=== PATIENT | female | born 1965 | race Caucasian/White ===

== ENCOUNTER 2021-08-11 19:13 | Inpatient (IN) | payer MEDICARE, MEDICAID, SELFPAY ==
[2021-08-11] VITALS (27 sets, daily range): BP systolic 119–156; BP diastolic 75–115; PULSE 68–94; RESP 17–32; TEMP 36.2; O2SAT 89–100; BMI 37.8
--- NOTE | ~2021-08-11 | XR_ITS ---
EXAMINATION: XR chest 1V portable DATE: 08/11/2021 20:10 INDICATION: Dyspnea. Chest tightness. TECHNIQUE: A single frontal view of the chest was obtained. COMPARISON: Chest 2 views 08/08/2016 FINDINGS: The chest demonstrates clear lungs without pneumonia, pleural effusion, or pneumothorax. Th e heart size is normal. There is a left chest wall pacer with leads in the right atrium and right bacilio tricle. There is an additional lead overlying right atrium. IMPRESSION: 1. No acute cardiopulmonary disease. Reviewed, dictated and finalized at location A.
--- NOTE | ~2021-08-11 | US_ITS ---
EXAMINATION: US venous doppler [facility] DATE: 08/13/2021 12:21 INDICATION: Bilateral lower limb swelling TECHNIQUE: Fuentes scale images without and with compression and Doppler images of the bilateral lower e xtremity veins were obtained. COMPARISON: None FINDINGS: The right common femoral vein, profunda femoral vein, femoral vein, popliteal vein, peroneal trunk, p osterior tibial veins, and greater saphenous vein are patent. The left common femoral vein, profunda femoral vein, femoral vein, popliteal vein, peroneal trunk, po sterior tibial veins, and greater saphenous vein are patent. IMPRESSION: 1. Patent bilateral lower extremity veins. No evidence of deep venous thrombosis. Reviewed, dictated and finalized at location A. IMPRESSION: 1. Patent bilateral lower extremity veins. No evidence of deep venous thrombosi s.
--- NOTE | ~2021-08-11 | XR_ITS ---
EXAMINATION: XR chest 1V portable INDICATION: Shortness of breath TECHNIQUE: Portable AP chest at 0823 hours COMPARISON: 08/11/2021 FINDINGS: There is mild atelectasis left lung base. The lungs are free of focal airspace opacities. T here is no pleural effusion or pneumothorax. A triple lead cardiac pacemaker of the left chest wall e nds with leads in expected locations. IMPRESSION: 1. Mild atelectasis. Reviewed, dictated and finalized at location A. IMPRESSION: 1. Mild atelectasis.
--- NOTE | ~2021-08-11 | CT_ITS ---
EXAMINATION: CTA chest PE protocol DATE: 08/13/2021 13:29 INDICATION: Shortness of breath TECHNIQUE: Computed tomography angiography (CTA) of the chest was performed with 100 mL Omnipaque-350 intravenous contrast timed to evaluate the pulmonary arteries. Coronal maximum intensity projection 3D-reconstructions were created by the technologist. The dose-length product (DLP) was 1010.09 mGy-cm . Automated exposure control and iterative reconstruction technique were employed. COMPARISON: 08/11/2021 FINDINGS: The pulmonary arteries are well-opacified. No pulmonary embolism is identified. Respiratory motion artifact slightly limits sensitivity. The previously described bronchitis has improved. There is also improvement in right upper lobe pneumonitis. There is no pleural effusion or pneumothorax. N o pathologically enlarged thoracic lymph nodes are identified. The heart size is normal. The gallblad mahnaz is surgically absent. There is mild thoracic spondylosis. There is a dual-lead pacemaker of the l eft chest wall with leads in the right atrium and right ventricle. IMPRESSION: 1. No pulmonary embolus. 2. Improving bronchitis of the upper lobes. Reviewed, dictated and finalized at location A.
--- NOTE | ~2021-08-11 | CT_ITS ---
EXAMINATION: CTA chest PE protocol DATE: 08/11/2021 20:55 INDICATION: Chest tightness. Shortness of breath. TECHNIQUE: Computed tomography angiography (CTA) of the chest was performed with 100 mL Omnipaque-350 intravenous contrast timed to evaluate the pulmonary arteries. Coronal maximum intensity projection 3D-reconstructions were created by the technologist. Automated exposure control and iterative reconst ruction technique were employed. The dose-length product was 477.90 mGy-cm. COMPARISON: None. FINDINGS: There is bronchial wall thickening in all lobes. There is mild atelectasis in right middle lobe and lingula. There are mild groundglass opacities in right upper lobe. No pleural effusion. The heart size is normal. No pericardial effusion. There is a left chest pacer with leads in right atrium and right ventricle. There is an additional lead in right atrium. Calcified mediastinal lymph nodes are consistent with old granulomatous disease. There is no pulmonary embolus. There are changes of ch olecystectomy. There is mild thoracic spondylosis. IMPRESSION: 1. No pulmonary embolus. 2. Bilateral bronchitis with mild right upper lobe pneumonitis. Reviewed, dictated and finalized at location A.
--- NOTE | 2021-08-11 19:15 | ECG_ITS ---
Measurements Intervals [place] Rate: 75 P: 72 WI: 161 QRS: 54 QRSD: 81 T: 61 QT: 369 QTc: 412 Interpretive Statements SINUS RHYTHM BORDERLINE ST-T WAVE ABNORMALITY- HIGH LATERAL LEADS BASELINE ARTIFACT- I, II, AVR, V4-V6 BORDERLINE ECG Electronically Signed On 08-11-2021 19:50:02 CDT by Ashok Rodriguez D.O.
--- NOTE | 2021-08-11 19:35 | ED.GENADULT ---
HPI - General Adult General Chief complaint: Shortness of Breath/Dyspnea Stated complaint: Shortness of breath, chest pain Time Seen by Provider: 08/11/21 19:29 History of Present Illness HPI narrative: Patient is a 56-year-old female who presents the emergency department with chief complaint of chest pain and shortness of breath. Patient states she has been having discomfort in her chest described as a tightness feeling for the last several hours patient states just prior to arrival in the emergency department she started getting more more short of breath. Patient states she is missing her appointment she does not have a nebulizer and inhaler at home and has been diagnosed with COPD. Patient also reports she has history of cardiac disease has a pacemaker for sick sinus syndrome and also has had an episode of congestive heart failure before in the past. Patient states that she currently does not have a primary care physician. Patient denies fever denies chills. Patient reports symptoms are not improved by anything and are worsened with movement and exertion. Related Data Allergies Allergy/AdvReac Type Severity Reaction Status Date / Time No Known Allergies Allergy Unverified 12/31/17 07:40 Review of Systems Review of Systems: A 10 system review of systems was completed on the patient and is negative except for what is stated in the HPI. Nursing and ancillary documentation was reviewed. PMFSH Comments Past medical history significant for COPD CHF coronary artery disease sick sinus syndrome. Social history patient denies illicit drug use reports that she smokes occasional cigarettes Exam Narrative: GENERAL: Well-appearing, well-nourished, and in no acute distress. HEAD: Normocephalic, atraumatic. EYES: PERRLA and EOMI. ENT: Nares clear, no rhinorrhea or epistaxis. Mucous membranes moist. NECK: Supple. CHEST: Mild respiratory distress with respiratory rate of 30. Scattered wheezes present bilaterally and increased respiratory rate HEART: Regular rate and rhythm. No murmur heard. Normal peripheral pulses. ABDOMEN: Soft, nontender, nondistended, normal active bowel sounds. EXTREMITIES: Normal range of motion. No edema. SKIN: Warm, dry, no rash. NEURO: No focal deficits. Alert and oriented x3. PSYCH: Normal mood and affect. Course Vital Signs Vital signs: Vital Signs Temperature 36.2 C L 08/11/21 19:23 Pulse Rate 94 08/11/21 19:23 Respiratory Rate 30 H 08/11/21 19:23 Blood Pressure 156/82 H 08/11/21 19:23 Pulse Oximetry 94 08/11/21 19:23 Temperature 36.2 C L 08/11/21 19:23 Pulse Rate 74 08/11/21 21:31 Respiratory Rate 27 H 08/11/21 20:02 Blood Pressure 156/82 H 08/11/21 19:23 Pulse Oximetry 96 08/11/21 19:48 Medical Decision Making Vital Signs Vital Signs: Vital Signs Temperature 36.2 C L 08/11/21 19:23 Pulse Rate 94 08/11/21 19:23 Respiratory Rate 30 H 08/11/21 19:23 Blood Pressure 156/82 H 08/11/21 19:23 Pulse Oximetry 94 08/11/21 19:23 Temperature 36.2 C L 08/11/21 19:23 Pulse Rate 74 08/11/21 21:31 Respiratory Rate 27 H 08/11/21 20:02 Blood Pressure 156/82 H 08/11/21 19:23 Pulse Oximetry 96 08/11/21 19:48 Lab Data Result diagrams: 08/11/21 19:39 08/11/21 19:39 Labs: Lab Results 08/11/21 08/11/21 08/11/21 Range/Units 19:39 19:39 19:39 WBC 7.2 (4.5-10.0) K/mm3 RBC 4.81 (4.2-5.4) M/mm3 Hgb 14.8 (12.0-15.0) g/dL Hct 45.5 (37.0-47.0) % MCV 94.6 (80-100) fl MCH 30.8 (26-34) pg MCHC 32.5 (32-36) g/dl RDW 13.6 (11.5-14.5) % Plt Count 295 (150-375) k/mm3 MPV 10.4 (7.4-10.4) fl Immature Gran % (Auto) 0.3 (0-0.5) % Neut % (Auto) 64.2 (45.5-73.1) % Lymph % (Auto) 28.7 (18.3-44.2) % Posey % (Auto) 4.6 (2.6-8.5) % Eos % (Auto) 1.5 (0-4.4) % Baso % (Auto) 0.7 (0.2-1.2) % Lymph # (Auto) 2.07 (0.9-3.2) K/mm3 Posey # (Auto) 0.3
[2021-08-11] MEDS: IPRATROPIUM BR 0.02% INH SOLN 0.5 MG/2.5 ML VIAL INHALATION (19:45)
[2021-08-11] MEDS: ALBUTEROL SULFATE NEB 2.5 MG/0.5 ML INH 5 MG INHALATION (19:45)
[2021-08-11 19:47] LABS: Basophils Absolute Auto 0.1 K/mm3 (0.0-0.1); Basophils Percent Auto 0.7 % (0.2-1.2); Eosinophils Absolute Auto 0.1 K/mm3 (0-0.3); Eosinophils Percent Auto 1.5 % (0-4.4); Hematocrit 45.5 % (37.0-47.0); Hemoglobin 14.8 g/dL (12.0-15.0); Immature Granulocyte Absolute 0.02 K/mm3 (0.00-0.031); Immature Granulocyte Percent A 0.3 % (0-0.5); Lymphocytes Absolute Auto 2.07 K/mm3 (0.9-3.2); Lymphocytes Percent Auto 28.7 % (18.3-44.2); Mean Corpuscular HGB Conc 32.5 g/dl (32-36); Mean Corpuscular Hemoglobin 30.8 pg (26-34); Mean Corpuscular Volume 94.6 fl (80-100); Mean Platelet Volume 10.4 fl (7.4-10.4); Monocytes Absolute Auto 0.3 K/mm3 (0.1-0.6); Monocytes Percent Auto 4.6 % (2.6-8.5); Neutrophils Absolute Auto 4.6 K/mm3 (1.3-6.7); Neutrophils Percent Auto 64.2 % (45.5-73.1); Platelet Count Result 295 k/mm3 (150-375); Red Blood Count 4.81 M/mm3 (4.2-5.4); Red Cell Distribution Width 13.6 % (11.5-14.5); White Blood Count 7.2 K/mm3 (4.5-10.0)
[2021-08-11 19:54] LABS: Base Excess ABG -0.6 mEq/l (+/-2.0); Device NASAL CANNULA; Fractional Inspired Oxygen 28 %; HCO3 ABG 23.7 mEq/l (22.0-26.0); Oxygen Content ABG 19.2 %vol (16.0-22.0); Oxygen Saturation ABG 93.2 % (95.0-100.0); Oxyhemoglobin 91.7 % THb (90.0-100.0); PCO2 ABG 38.3 mmHg (35.0-45.0); PO2 ABG 65.4 mmHg (80.0-100.0); PO2 FiO2 Ratio Arterial Blood 2.34 %; Site Drawn RIGHT BRACHIAL; Total Hemoglobin 14.9 g/dL (12.0-18.0)
[2021-08-11 19:56] LABS: Lactic Acid Reflex 1.4 mmol/L (0.7-2.0)
[2021-08-11 19:57] LABS: Alanine Aminotransferase 24 U/L (4-35); Albumin Level 4.3 g/dL (3.5-5.1); Alkaline Phosphatase 135 U/L (38-126); Anion Gap 9 mmol/L (8-16); Aspartate Amino Transferase 36 U/L (14-36); Bilirubin,Total 0.3 mg/dL (0.2-1.3); Blood Urea Nitrogen 15 mg/dL (7-17); Carbon Dioxide 27 mmol/L (22-30); Chloride 104 mmol/L (98-107); Estimated CRCL calculation 52 ml/min; Estimated Glomerular Filt Rate > 60; Glucose 115 mg/dL (65-110); Potassium 3.4 mmol/L (3.4-5.0); Sodium 140 mmol/L (137-145)
[2021-08-11 19:58] LABS: Lipase 60 U/L (23-300); Magnesium 1.8 mg/dL (1.6-2.3)
[2021-08-11 20:01] LABS: INR 1.1; Prothrombin Time 13.7 Seconds (11.1-14.7)
[2021-08-11 20:02] LABS: Partial Thromboplastin Time 30.4 SECONDS (22.3-36.8)
[2021-08-11] MEDS: ASPIRIN 81 MG CHEWABLE TABLET 324 MG PO (20:03)
[2021-08-11] MEDS: methylPREDNISolone SOD SUCC 125 MG VIAL IV PUSH (20:03)
[2021-08-11 20:06] LABS: NT Pro B Type Natriuretic Pept 73 pg/mL (5-100)
[2021-08-11 20:09] LABS: Troponin I < 0.012 ng/mL (0.000-0.034)
[2021-08-11 20:24] LABS: SARS-CoV-2 RNA PCR Negative
--- NOTE | 2021-08-11 21:14 | PM.IMHP ---
H&P: HPI History of Present Illness Date/Time: 08/11/21 21:14 Chief Complaint: Shortness of breath. Narrative: This is a 56-year-old female with past medical history significant for COPD/emphysema, tobacco dependence. Patient presents to the emergency room due to worsening shortness of breath, for the last day or so patient denies any fevers, rigors, chills, has cough, denies any changes in sputum quality she has a productive cough with scanty sputum production. Patient has not been able to sleep due to shortness of breath. Patient is a current everyday smoker. Preliminary workup was significant for CT angiogram of the chest was negative for acute pulmonary embolism. A chest x-ray showed no acute cardiopulmonary disease. Patient requires supplemental oxygen 2 L by nasal cannula blood gases showed a pH of 7.4, pCO2 38 PO2 65. Decision has been made to admit the patient for further evaluation management and treatment. Review of Systems Review of Systems: Shortness of breath, wheezing. Constitutional: Constitutional: Denies chills, Reports fatigue, Denies fever(s), Denies lethargy, Denies malaise, Denies night sweats and Denies weakness Eyes: Eyes: Denies change in vision ENT: Denies dysphagia, Denies vertigo, Denies dizziness, Denies nasal congestion, Denies nasal discharge, Denies nasal obstruction and Denies odynophagia Cardiovascular: Cardiovascular: Denies chest pain, Denies pedal edema, Denies edema, Denies leg edema, Denies radiating jaw, neck or arm pain and Denies palpitations Respiratory: Respiratory: Denies change in phlegm color, Reports cough, Denies excessive phlegm production and Reports dyspnea Gastrointestinal: Gastrointestinal: Denies abdominal pain, Denies dyspepsia, Denies heartburn, Denies diarrhea, Denies nausea and Denies vomiting Genitourinary: Genitourinary: Denies dysuria Musculoskeletal: Musculoskeletal: Denies arthralgias and Denies joint swelling Integumentary/Breasts: Skin/Breast: Denies rash Neurologic: Denies focal weakness and Denies Sensory deficit (Neuro) Psychiatric: Psychiatric: Reports no additional psychiatric complaints and Reports as per HPI Endocrine: Endocrine: Denies cold intolerance, Denies heat intolerance, Denies polyphagia, Denies polydipsia and Denies palpitations Hematologic/Lymphatic: Hematologic/Lymphatic: Reports no additional hematologic/lymphatic complaints and Reports as per HPI Allergic/Immunologic: Allergic/Immunologic: Reports no additional allergic/immunologic complaints and Reports as per HPI [facility] Family History Family History (Updated 08/12/21 @ 01:20 by Negin Valenzuela RN) Father Heart disease Sibling Stomach cancer COPD (chronic obstructive pulmonary disease) Sibling Diabetes mellitus Social History Social History Years smoked: 35 Smoking status: Current every day smoker Tobacco type: cigarettes Additional smoking assessment comments: pt trying to quit Alcohol intake: never Substance use type: marijuana Other substance usage details: 08/07/21 Spiritual care concerns: No Meds Home Medications and Allergies Home Medications Medication Instructions Recorded Confirmed Type albuterol sulfate 90 mcg INHALATION Q4-6H PRN 08/12/21 08/12/21 History alprazolam 2 mg PO TID PRN 08/12/21 08/12/21 History budesonide-formoterol [Symbicort] 2 puff INHALATION DAILY 08/12/21 08/12/21 History clopidogrel 75 mg PO DAILY 08/12/21 08/12/21 History gabapentin 1,200 mg PO TID 08/12/21 08/12/21 History isosorbide mononitrate 60 mg PO DAILY 08/12/21 08/12/21 History lisinopril 10 mg PO DAILY 08/12/21 08/12/21 History nitroglycerin 0.4 mg SUBLINGUAL Q5MIN PRN 08/12/21 08/12/21 History paroxetine HCl 40 mg PO DAILY 08/12/21 08/12/21 History Allergies Allergy/AdvReac Type Severity Reaction Status Date / Time No Known Allergies Allergy Verified 08/12/21 00:02 Vital Signs Vital Signs
[2021-08-11 21:35] LABS: Appearance Urine Clear (Clear); Bilirubin Urine Negative (Negative); Blood Urine Negative (Negative); Color Urine Yellow (Yellow); Glucose Urine UA Negative (Negative); Ketones Urine Negative (Negative); Leukocyte Esterase Ur Negative LEU/UL (Negative); Nitrate Urine Negative (Negative); Protein Urine Negative (Negative); Urobilinogen Urine 0.2 mg/dL (<2.0); pH Urine 5.5 (5.0-9.0)
[2021-08-11 21:39] LABS: Add Urine Microscopic? YES
[2021-08-11] MEDS: MORPHINE SULFATE (*CRX) 4 MG/ML INJ IV PUSH (21:40)
[2021-08-11 21:41] LABS: Mucus Urine Few /lpf; RBC Urine 0-2 /hpf (0-2); Squamous Epithelial Cell Urine Rare /hpf (Few); WBC Urine 0-3 /hpf
[2021-08-11 22:40] LABS: Troponin I < 0.012 ng/mL (0.000-0.034)
--- NOTE | 2021-08-11 23:30 | ADMGEN ---
This patient, Annalisa Little, was admitted to Medical Room 253-01. Patient/family oriented to hospital policies and general routines including ID bracelet, bed and alarms, visiting hours, pain management, procedures, bathroom and other care routines, personal items, smoking policy, room service/diet, and visiting hours. Information on how to activate the Rapid Response Team has been discussed. Patient/Family are encouraged to report perceived risks to care and to ask questions if they do not understand what they are told or what they should do.
[2021-08-12] VITALS (19 sets, daily range): BP systolic 109–134; BP diastolic 56–76; PULSE 67–84; RESP 16–20; TEMP 35.7–36.8; O2SAT 93–100
[2021-08-12] MEDS: MORPHINE SULFATE (*CRX) 4 MG/ML INJ IV PUSH (00:46)
[2021-08-12] MEDS: methylPREDNISolone SOD SUCC 125 MG VIAL 60 MG IV PUSH ×2 (00:50→06:08)
[2021-08-12] MEDS: ALBUTEROL SULFATE NEB 2.5 MG/0.5 ML INH 5 MG INHALATION ×4 (02:15→21:26)
[2021-08-12] MEDS: IPRATROPIUM BR 0.02% INH SOLN 0.5 MG/2.5 ML VIAL INHALATION ×4 (02:16→21:26)
[2021-08-12] MEDS: ALPRAZolam (*CRX) 0.5 MG TABLET 2 MG PO ×2 (06:11→17:01)
[2021-08-12] MEDS: FLUTICASONE/SALMETEROL 115-21 MCG INHALER 1 PUFF 2 PUFF INHALATION ×2 (08:29→21:26)
[2021-08-12 09:07] LABS: Basophils Percent Auto 0.2 % (0.2-1.2); Hematocrit 43.6 % (37.0-47.0); Immature Granulocyte Absolute 0.05 K/mm3 (0.00-0.031); Immature Granulocyte Percent A 0.8 % (0-0.5); Lymphocytes Absolute Auto 1.04 K/mm3 (0.9-3.2); Lymphocytes Percent Auto 15.8 % (18.3-44.2); Mean Corpuscular HGB Conc 32.1 g/dl (32-36); Mean Corpuscular Hemoglobin 31.1 pg (26-34); Mean Corpuscular Volume 96.9 fl (80-100); Mean Platelet Volume 10.5 fl (7.4-10.4); Monocytes Percent Auto 0.6 % (2.6-8.5); Neutrophils Absolute Auto 5.4 K/mm3 (1.3-6.7); Neutrophils Percent Auto 82.6 % (45.5-73.1); Platelet Count Result 274 k/mm3 (150-375); Red Cell Distribution Width 13.7 % (11.5-14.5); White Blood Count 6.6 K/mm3 (4.5-10.0)
[2021-08-12 09:12] LABS: Alanine Aminotransferase 24 U/L (4-35); Albumin Level 4.3 g/dL (3.5-5.1); Alkaline Phosphatase 117 U/L (38-126); Anion Gap 9 mmol/L (8-16); Aspartate Amino Transferase 30 U/L (14-36); Bilirubin,Total 0.2 mg/dL (0.2-1.3); Blood Urea Nitrogen 12 mg/dL (7-17); Calcium 9.1 mg/dL (8.4-10.2); Carbon Dioxide 27 mmol/L (22-30); Chloride 103 mmol/L (98-107); Estimated CRCL calculation 72 ml/min; Estimated Glomerular Filt Rate > 60; Glucose 165 mg/dL (65-110); Sodium 139 mmol/L (137-145)
[2021-08-12] MEDS: lisinopriL 10 MG TABLET PO (09:47)
[2021-08-12] MEDS: PARoxetine 20 MG TABLET 40 MG PO (09:47)
[2021-08-12] MEDS: CLOPIDOGREL BISULFATE 75 MG TABLET PO (09:48)
[2021-08-12] MEDS: ISOSORBIDE MONONITRATE 60 MG TAB.ER.24H PO (09:48)
[2021-08-12] MEDS: GABAPENTIN 400 MG CAPSULE 1200 MG PO ×3 (09:48→16:58)
--- NOTE | 2021-08-12 11:45 | PM.IMPN ---
Progress Note: A&P Assessment and Plan (1) Acute exacerbation of chronic obstructive airways disease: Code(s): J44.1 - Chronic obstructive pulmonary disease with (acute) exacerbation Status: Acute Assessment and Plan: Chest xray shows no acute abnormality CTA shows No pulmonary embolus, Bilateral bronchitis with mild right upper lobe pneumonitis. Scheduled breathing treatment Systemic steroids, reduced to 40mg IV BID Continue Rocephin and Zithromax Blood cultures and sputum culture ordered (2) Tobacco dependence: Code(s): F17.200 - Nicotine dependence, unspecified, uncomplicated Status: Acute Assessment and Plan: Nicotine patch as needed Patient is trying to quit Down from 1 pack a day to couple cigarettes a day (3) Bronchitis: Code(s): J40 - Bronchitis, not specified as acute or chronic Status: Acute Assessment and Plan: CTA shows Bilateral bronchitis with mild right upper lobe pneumonitis Continue antibiotics azithromycin and ceftriaxone Trend WBC Could be chronic as she stated that she was recently on antibiotics at home Time Spent With Patient Time with patient: Greater than 35 minutes Subjective Date/time seen: 08/12/21 11:45 Interval history: Date/Time: 08/11/21 21:14 Narrative: This is a 56-year-old female with past medical history significant for COPD/emphysema, tobacco dependence. Patient presents to the emergency room due to worsening shortness of breath, for the last day or so patient denies any fevers, rigors, chills, has cough, denies any changes in sputum quality she has a productive cough with scanty sputum production. Patient has not been able to sleep due to shortness of breath. Patient is a current everyday smoker. Preliminary workup was significant for CT angiogram of the chest was negative for acute pulmonary embolism. A chest x-ray showed no acute cardiopulmonary disease. Patient requires supplemental oxygen 2 L by nasal cannula blood gases showed a pH of 7.4, pCO2 38 PO2 65. Decision has been made to admit the patient for further evaluation management and treatment. Date/Time: 08/12/21 1145 Patient stated that she is feeling very shaking and just tired. She also stated that her sputum has changed and is producing more of a green thick sputum. She also stated that she is noticing an increase in wheezes. She denies any chest pain, shortness of breath, nausea, vomiting, diarrhea, constipation. Re-evaluated her shortness of breath since she seemed that she was short when she was talking to me. Review of Systems Review of Systems: All systems reviewed & are unremarkable except as noted in HPI and below Exam Const: General: comfortable, well developed, alert, awake and acute distress (when talking) moderate Nutritional Appearance: average body habitus Orientation/consciousness: patient oriented x3 HENMT: Head: normal to inspection, normocephalic and atraumatic Ears: hearing grossly normal bilaterally General nose exam: Normal external nose present Face and sinus: normal facial exam and other (Nasal cannula in place) Mouth: Yes Normal oral and palatal mucosa present Eyes: General: appearance normal, both eyes and all related structures Alignment and Position: alignment normal Pupils: Equal, round and reactive pupils present EOM: EOMs intact bilaterally Neck: Neck: normal visual inspection, full ROM, no lymphadenopathy, supple and no JVD Thyroid: thyroid normal Lymphatic: no lymphadenopathy noted Resp: Effort & Inspection: not able to speak in complete sentences, abnormal respiratory pattern, respiratory distress and tachypneic Auscultation: clear to auscultation bilaterally, no crackles, no rales, no rhonchi, wheezes and diminished lung sounds Cardio: Jugular venous distension: no JVD Rate: regular rate Rhythm: regular rhythm Heart sounds: S1 normal heart sound present and S2 normal heart sound present
[2021-08-12] MEDS: methylPREDNISolone SOD SUCC 40 MG VIAL IV PUSH (16:58)
[2021-08-12] MEDS: ACETAMINOPHEN 325 MG TABLET 650 MG PO (17:01)
[2021-08-13] VITALS (15 sets, daily range): BP systolic 95–108; BP diastolic 48–70; PULSE 55–97; RESP 16–24; TEMP 36.6; O2SAT 95–100
[2021-08-13] MEDS: ALBUTEROL SULFATE NEB 2.5 MG/0.5 ML INH 5 MG INHALATION ×2 (02:57→08:33)
[2021-08-13] MEDS: IPRATROPIUM BR 0.02% INH SOLN 0.5 MG/2.5 ML VIAL INHALATION ×2 (02:58→08:33)
--- NOTE | 2021-08-13 03:05 | PC.NURSE ---
COMMERCIAL ROOFING ESTIMATOR called me into patient room. Patient not responsive, eyes had rolled into the back of her head. Rapid response called
[2021-08-13 03:22] LABS: Glucose Point of Care 138 mg/dl (65-105)
[2021-08-13 03:30] LABS: Alveolar/Arterial O2 Gradient 35.7 mmHg; Device ROOM AIR; Fractional Inspired Oxygen 21 %; HCO3 ABG 23.9 mEq/l (22.0-26.0); Modified Allen's Test Pass; Oxygen Content ABG 17.9 %vol (16.0-22.0); Oxygen Saturation ABG 92.6 % (95.0-100.0); Oxyhemoglobin 92.5 % THb (90.0-100.0); PCO2 ABG 40.8 mmHg (35.0-45.0); PO2 ABG 65.2 mmHg (80.0-100.0); Site Drawn LEFT RADIAL; Total Hemoglobin 13.8 g/dL (12.0-18.0); pH ABG 7.386 (7.350-7.450)
[2021-08-13] MEDS: NALOXONE HCL 0.4 MG/ML VIAL IV PUSH (03:30)
[2021-08-13] MEDS: flumazeniL 0.5 MG/5 ML VIAL 1 MG IV PUSH (03:30)
--- NOTE | 2021-08-13 03:37 | PC.NURSE ---
Rapid Team at bedside. Nursing motor assembly supervisor Jadyn Kiran RN and ICU charge nurse, Ruma Bernal. RN at bedside administered Narcan 0.4mg IVP first at 0320. Then gave Romazicon 0.5mg IVP at 0325. I entered orders and scanned vials at bedside. Ruma Bernal RN administered medication. Dr. Marley is at the bedside as well.
[2021-08-13] MEDS: methylPREDNISolone SOD SUCC 40 MG VIAL IV PUSH (05:50)
[2021-08-13 06:45] LABS: Basophils Percent Auto 0.1 % (0.2-1.2); Eosinophils Percent Auto 0.1 % (0-4.4); Hemoglobin 13.1 g/dL (12.0-15.0); Immature Granulocyte Absolute 0.08 K/mm3 (0.00-0.031); Immature Granulocyte Percent A 0.6 % (0-0.5); Lymphocytes Absolute Auto 1.73 K/mm3 (0.9-3.2); Lymphocytes Percent Auto 12.5 % (18.3-44.2); Mean Corpuscular HGB Conc 33.6 g/dl (32-36); Mean Corpuscular Hemoglobin 31.6 pg (26-34); Mean Corpuscular Volume 94.2 fl (80-100); Monocytes Absolute Auto 0.7 K/mm3 (0.1-0.6); Monocytes Percent Auto 5.2 % (2.6-8.5); Neutrophils Absolute Auto 11.3 K/mm3 (1.3-6.7); Neutrophils Percent Auto 81.5 % (45.5-73.1); Platelet Count Result 285 k/mm3 (150-375); Red Blood Count 4.14 M/mm3 (4.2-5.4); White Blood Count 13.9 K/mm3 (4.5-10.0)
[2021-08-13 07:00] LABS: Alanine Aminotransferase 19 U/L (4-35); Albumin Level 3.9 g/dL (3.5-5.1); Alkaline Phosphatase 110 U/L (38-126); Anion Gap 5 mmol/L (8-16); Aspartate Amino Transferase 23 U/L (14-36); Bilirubin,Total 0.1 mg/dL (0.2-1.3); Blood Urea Nitrogen 20 mg/dL (7-17); Carbon Dioxide 26 mmol/L (22-30); Chloride 107 mmol/L (98-107); Estimated CRCL calculation 72 ml/min; Estimated Glomerular Filt Rate > 60; Glucose 153 mg/dL (65-110); Magnesium 1.9 mg/dL (1.6-2.3); Potassium 3.8 mmol/L (3.4-5.0); Sodium 138 mmol/L (137-145)
--- NOTE | 2021-08-13 08:00 | P.PNIM_ITS ---
Progress Note: A&P Assessment and Plan (1) Acute exacerbation of chronic obstructive airways disease: Code(s): J44.1 - Chronic obstructive pulmonary disease with (acute) exacerbation Status: Acute Assessment and Plan: * Chest xray shows no acute abnormality * CTA shows No pulmonary embolus, Bilateral bronchitis with mild right upper lobe pneumonitis. * Repeat CTA * Scheduled breathing treatment * Systemic steroids, reduced to 40mg IV BID * Continue Rocephin and Zithromax * Blood cultures pending * sputum culture ordered * Mycoplasma PNA, legionella, Pneumococcal, Pertussis ordered * D. Dimer 0.69 * BNP 156 * Echo ordered * Venous doppler ordered * Blood gas shows pH 7.386, pCO2 40.8, pO2 65.2, saturation of 92.6 (2) Tobacco dependence: Code(s): F17.200 - Nicotine dependence, unspecified, uncomplicated Status: Acute Assessment and Plan: * Nicotine patch as needed * Patient is trying to quit * Down from 1 pack a day to couple cigarettes a day (3) Bronchitis: Code(s): J40 - Bronchitis, not specified as acute or chronic Status: Acute Assessment and Plan: * CTA shows Bilateral bronchitis with mild right upper lobe pneumonitis * Continue antibiotics azithromycin and ceftriaxone * Trend WBC * Could be chronic as she stated that she was recently on antibiotics at home (4) Shortness of breath: Code(s): R06.02 - Shortness of breath Status: Acute Assessment and Plan: * Reports inability to take a deep breath * D.Dimer 0.69 * Repeat CTA ordered * CTA was done at admission, however, consider repeating * Echo ordered * BNP 159 * Chest xray now acute abnormality * Multiple respiratory labs ordered * Blood gas shows pH 7.386, pCO2 40.8, pO2 65.2, saturation of 92.6 Time Spent With Patient Time with patient: Greater than 35 minutes Subjective Date/time seen: 08/13/21 08:00 Interval history: Date/Time: 08/11/21 21:14 Narrative: This is a 56-year-old female with past medical history significant for COPD/emphysema, tobacco dependence. Patient presents to the emergency room due to worsening shortness of breath, for the last day or so patient denies any fevers, rigors, chills, has cough, denies any changes in sputum quality she has a productive cough with scanty sputum production. Patient has not been able to sleep due to shortness of breath. Patient is a current everyday smoker. Preliminary workup was significant for CT angiogram of the chest was negative for acute pulmonary embolism. A chest x-ray showed no acute cardiopulmonary disease. Patient requires supplemental oxygen 2 L by nasal cannula blood gases showed a pH of 7.4, pCO2 38 PO2 65. Decision has been made to admit the patient for further evaluation management and treatment. Date/Time: 08/12/21 1145 Patient stated that she is feeling very shaking and just tired. She also stated that her sputum has changed and is producing more of a green thick sputum. She also stated that she is noticing an increase in wheezes. She denies any chest pain, shortness of breath, nausea, vomiting, diarrhea, constipation. Re- evaluated her shortness of breath since she seemed that she was short when she was talking to me. Date/Time: 08/13/21 0800 Patient is very lethargic today. She is not able to take a deep breath. She also complains of pain with deep inhalation. She also stated that she was unable to get up last night, and a rapid was called on her. She denies any chest pain, but still has a cough.
--- NOTE | 2021-08-13 08:00 | PM.IMPN ---
Progress Note: A&P Assessment and Plan (1) Acute exacerbation of chronic obstructive airways disease: Code(s): J44.1 - Chronic obstructive pulmonary disease with (acute) exacerbation Status: Acute Assessment and Plan: Chest xray shows no acute abnormality CTA shows No pulmonary embolus, Bilateral bronchitis with mild right upper lobe pneumonitis. Repeat CTA Scheduled breathing treatment Systemic steroids, reduced to 40mg IV BID Continue Rocephin and Zithromax Blood cultures pending sputum culture ordered Mycoplasma PNA, legionella, Pneumococcal, Pertussis ordered D. Dimer 0.69 BNP 156 Echo ordered Venous doppler ordered Blood gas shows pH 7.386, pCO2 40.8, pO2 65.2, saturation of 92.6 (2) Tobacco dependence: Code(s): F17.200 - Nicotine dependence, unspecified, uncomplicated Status: Acute Assessment and Plan: Nicotine patch as needed Patient is trying to quit Down from 1 pack a day to couple cigarettes a day (3) Bronchitis: Code(s): J40 - Bronchitis, not specified as acute or chronic Status: Acute Assessment and Plan: CTA shows Bilateral bronchitis with mild right upper lobe pneumonitis Continue antibiotics azithromycin and ceftriaxone Trend WBC Could be chronic as she stated that she was recently on antibiotics at home (4) Shortness of breath: Code(s): R06.02 - Shortness of breath Status: Acute Assessment and Plan: Reports inability to take a deep breath D.Dimer 0.69 Repeat CTA ordered CTA was done at admission, however, consider repeating Echo ordered BNP 159 Chest xray now acute abnormality Multiple respiratory labs ordered Blood gas shows pH 7.386, pCO2 40.8, pO2 65.2, saturation of 92.6 Time Spent With Patient Time with patient: Greater than 35 minutes Subjective Date/time seen: 08/13/21 08:00 Interval history: Date/Time: 08/11/21 21:14 Narrative: This is a 56-year-old female with past medical history significant for COPD/emphysema, tobacco dependence. Patient presents to the emergency room due to worsening shortness of breath, for the last day or so patient denies any fevers, rigors, chills, has cough, denies any changes in sputum quality she has a productive cough with scanty sputum production. Patient has not been able to sleep due to shortness of breath. Patient is a current everyday smoker. Preliminary workup was significant for CT angiogram of the chest was negative for acute pulmonary embolism. A chest x-ray showed no acute cardiopulmonary disease. Patient requires supplemental oxygen 2 L by nasal cannula blood gases showed a pH of 7.4, pCO2 38 PO2 65. Decision has been made to admit the patient for further evaluation management and treatment. Date/Time: 08/12/21 1145 Patient stated that she is feeling very shaking and just tired. She also stated that her sputum has changed and is producing more of a green thick sputum. She also stated that she is noticing an increase in wheezes. She denies any chest pain, shortness of breath, nausea, vomiting, diarrhea, constipation. Re-evaluated her shortness of breath since she seemed that she was short when she was talking to me. Date/Time: 08/13/21 0800 Patient is very lethargic today. She is not able to take a deep breath. She also complains of pain with deep inhalation. She also stated that she was unable to get up last night, and a rapid was called on her. She denies any chest pain, but still has a cough. She is also exhibiting some swelling to the bilateral lower extremities. Her eyes are blood shot. She denies any nausea, vomiting, diarrhea, constipation. She stated that she has been getting out of bed. She also stated that she is under some social anxiety today about her daughter and family. Review of Systems Review of Systems: All systems reviewed & are unremarkable except as noted in HPI and below Exam C
[2021-08-13] MEDS: FLUTICASONE/SALMETEROL 115-21 MCG INHALER 1 PUFF 2 PUFF INHALATION (08:33)
[2021-08-13 08:55] LABS: NT Pro B Type Natriuretic Pept 159 pg/mL (5-100)
[2021-08-13 09:18] LABS: D Dimer 0.69 ug/mL (<0.48)
[2021-08-13] MEDS: ENOXAPARIN 40 MG/0.4 ML SYRINGE SUB-Q (09:30)
[2021-08-13] MEDS: CLOPIDOGREL BISULFATE 75 MG TABLET PO (09:30)
[2021-08-13] MEDS: GABAPENTIN 400 MG CAPSULE 1200 MG PO ×2 (09:31→12:13)
[2021-08-13] MEDS: PARoxetine 20 MG TABLET 40 MG PO (09:31)
[2021-08-13 09:32] LABS: Procalcitonin < 0.0 ng/mL
--- NOTE | 2021-08-13 15:39 | PC.NURSE ---
Pt call light answered asking if she could go outside. Pt was told she cannot leave the unit as she had a rapid response called last night d/t unresponsiveness, suspected of taking medications from home concurrently with hospital dose of xanax. She became suddenly responsive after a dose of romazicon. When I went to the room, she was packing her belongings up and stated, I'm going to go. I asked her if she wanted to leave against medical advice. She said, Yes, I am going to go and I called my doctor. He wants to see me next week. I asked her, Did his office answer the phone on Saturday, Mother's Day? She said, There's no fluid on my lungs. I got those IV antibiotics so I don't need to stay here. I'm going home. It's my daughter's birthday. [facility] said I can come in next week. I'm okay. I'm leaving. I asked her is there anything that I can do to change your mind. Your doctor said you aren't medically cleared. If you leave, I'll need you to sign the leaving against medical advice paper. She kept reiterating, I can't stay here no more. I don't have no fluid on my lungs. I got those antibiotics. She was adamant that she was leaving and would not allow me to speak or explain the risks that she was taking before leaving. She said, Where's the paper? I handed it to her and she signed it. I brought the wheelchair to her room and the RADIOLOGY MANAGER took her downstairs to the main entrance where she said she waiting for someone to come and get her. Paul Waite NP was notified.
--- NOTE | 2021-08-13 15:40 | P.DS_ITS ---
DS: Admitting Diagnosis Discharge Date 08/12/21 1539 Admitting Diagnosis Bronchitis DS: Discharge Diagnosis Discharge Diagnosis (1) Acute exacerbation of chronic obstructive airways disease: Code(s): J44.1 - Chronic obstructive pulmonary disease with (acute) exacerbation Status: Acute Assessment and Plan: * Chest xray shows no acute abnormality * CTA shows No pulmonary embolus, Bilateral bronchitis with mild right upper lobe pneumonitis. * Repeat CTA No pulmonary embolis * Scheduled breathing treatment * Systemic steroids, reduced to 40mg IV BID * Continue Rocephin and Zithromax * Blood cultures pending * sputum culture pending * Mycoplasma PNA, legionella, Pneumococcal, Pertussis ordered * D. Dimer 0.69 * BNP 156 * Echo ordered * Venous doppler patent bilateral lower extremities * Blood gas shows pH 7.386, pCO2 40.8, pO2 65.2, saturation of 92.6 (2) Tobacco dependence: Code(s): F17.200 - Nicotine dependence, unspecified, uncomplicated Status: Acute Assessment and Plan: * Nicotine patch as needed * Patient is trying to quit * Down from 1 pack a day to couple cigarettes a day (3) Bronchitis: Code(s): J40 - Bronchitis, not specified as acute or chronic Status: Acute Assessment and Plan: * CTA shows Bilateral bronchitis with mild right upper lobe pneumonitis * Continue antibiotics azithromycin and ceftriaxone * Trend WBC * Could be chronic as she stated that she was recently on antibiotics at home (4) Shortness of breath: Code(s): R06.02 - Shortness of breath Status: Acute Assessment and Plan: * Reports inability to take a deep breath * D.Dimer 0.69 * Repeat CTA No PE * CTA was done at admission, however, consider repeating * Echo ordered * BNP 159 * Chest xray now acute abnormality * Multiple respiratory labs ordered * Blood gas shows pH 7.386, pCO2 40.8, pO2 65.2, saturation of 92.6 DS: Summary Hospital Course Hospital Course: Patient is a 56 female with past medical history of COPD emphysema, tobacco abuse who presented the ED for shortness of breath. Patient was worked up for PE and CTA denied any PE however D-dimer was elevated at 0.69. X-rays and CTA did show bronchitis patient was started on IV antibiotics. Steroids were also started. Sputum and blood cultures were ordered and pending. Smoking cessation was addressed and education about stopping smoking was provided multiple times throughout her stay. Nicotine patch and gum was ordered. Patient grew to be very restless and wanted to go outside. Patient decided that the best option for her was to leave against medical advice. Esther ent was Coached and counselled by nursing staff about the importance of completing treatment however patient left any way. Provider was unable to speak to the patient about leaving. No discharge instructions were given or education about further care. Status at Discharge Functional status at discharge: independent ambulation Overall status at discharge: patient is progressing back to baseline Time Spent with Patient Time attestation: Total time spent providing and/or coordinating discharge services: 38 minutes Time spent: Greater than 30 minutes Specific discharge activities: Diagnostic testing, chart review, developing a treatment plan, education, care coordination documentation, physical exam, result review Exam Const: General: comfortable, well developed, alert, awake, ill appearing acutely, lethargic and tired
--- NOTE | 2021-08-13 15:40 | PM.DS ---
DS: Admitting Diagnosis Discharge Date 08/12/21 1539 Admitting Diagnosis Bronchitis DS: Discharge Diagnosis Discharge Diagnosis (1) Acute exacerbation of chronic obstructive airways disease: Code(s): J44.1 - Chronic obstructive pulmonary disease with (acute) exacerbation Status: Acute Assessment and Plan: Chest xray shows no acute abnormality CTA shows No pulmonary embolus, Bilateral bronchitis with mild right upper lobe pneumonitis. Repeat CTA No pulmonary embolis Scheduled breathing treatment Systemic steroids, reduced to 40mg IV BID Continue Rocephin and Zithromax Blood cultures pending sputum culture pending Mycoplasma PNA, legionella, Pneumococcal, Pertussis ordered D. Dimer 0.69 BNP 156 Echo ordered Venous doppler patent bilateral lower extremities Blood gas shows pH 7.386, pCO2 40.8, pO2 65.2, saturation of 92.6 (2) Tobacco dependence: Code(s): F17.200 - Nicotine dependence, unspecified, uncomplicated Status: Acute Assessment and Plan: Nicotine patch as needed Patient is trying to quit Down from 1 pack a day to couple cigarettes a day (3) Bronchitis: Code(s): J40 - Bronchitis, not specified as acute or chronic Status: Acute Assessment and Plan: CTA shows Bilateral bronchitis with mild right upper lobe pneumonitis Continue antibiotics azithromycin and ceftriaxone Trend WBC Could be chronic as she stated that she was recently on antibiotics at home (4) Shortness of breath: Code(s): R06.02 - Shortness of breath Status: Acute Assessment and Plan: Reports inability to take a deep breath D.Dimer 0.69 Repeat CTA No PE CTA was done at admission, however, consider repeating Echo ordered BNP 159 Chest xray now acute abnormality Multiple respiratory labs ordered Blood gas shows pH 7.386, pCO2 40.8, pO2 65.2, saturation of 92.6 DS: Summary Hospital Course Hospital Course: Patient is a 56 female with past medical history of COPD emphysema, tobacco abuse who presented the ED for shortness of breath. Patient was worked up for PE and CTA denied any PE however D-dimer was elevated at 0.69. X-rays and CTA did show bronchitis patient was started on IV antibiotics. Steroids were also started. Sputum and blood cultures were ordered and pending. Smoking cessation was addressed and education about stopping smoking was provided multiple times throughout her stay. Nicotine patch and gum was ordered. Patient grew to be very restless and wanted to go outside. Patient decided that the best option for her was to leave against medical advice. Patient was Coached and counselled by nursing staff about the importance of completing treatment however patient left any way. Provider was unable to speak to the patient about leaving. No discharge instructions were given or education about further care. Status at Discharge Functional status at discharge: independent ambulation Overall status at discharge: patient is progressing back to baseline Time Spent with Patient Time attestation: Total time spent providing and/or coordinating discharge services: 38 minutes Time spent: Greater than 30 minutes Specific discharge activities: Diagnostic testing, chart review, developing a treatment plan, education, care coordination documentation, physical exam, result review Exam Const: General: comfortable, well developed, alert, awake, ill appearing acutely, lethargic and tired appearing Nutritional Appearance: average body habitus Orientation/consciousness: oriented to person, oriented to place, oriented to time, patient oriented x3 and lethargic HENMT: Head: normal to inspection, normocephalic and atraumatic Ears: hearing grossly normal bilaterally General nose exam: Normal external nose present Face and sinus: normal facial exam Mouth: Yes Normal oral and palatal mucosa present Eyes: General: appearance normal
[2021-08-15 21:48] LABS: Pneumococcal Antigen Urine Not Detected (Not Detected)
[2021-08-16 06:19] LABS: Legionella pneumophila Ag Ur Not Detected (Not Detected)
== END 2021-08-13 14:45 | disposition left against medical advice (07) | DRG 190 ==
LOC: ANHED 22:13 → ANH2MED 22:40
PROVIDERS: Emergency Medicine; Admitting Provider Internal Medicine; Emergency Provider Emergency Medicine; PCP Family Medicine Sports Medicine; Visit Provider Nurse Practitioner
DX: J44.1 Chronic obstructive pulmonary disease with (acute) exacerbation (principal); J18.9 Pneumonia, unspecified organism; J44.0 Chronic obstructive pulmonary disease with (acute) lower respiratory infection; J40 Bronchitis, not specified as acute or chronic; F17.210 Nicotine dependence, cigarettes, uncomplicated; I50.9 Heart failure, unspecified; I25.10 Atherosclerotic heart disease of native coronary artery without angina pectoris; Z95.0 Presence of cardiac pacemaker; Z20.822 Contact with and (suspected) exposure to COVID-19
CPT/HCPCS: 36415; 36600; 71045; 71275; 80053; 81001; 82805; 82948; 83605; 83690; 83735; 83880; 84145; 84484; 85025; 85380; 85610; 85730; 87040; 87070; 87205; 87449; 87581; 87899; 93005; 93970; 94640; 96365; 96367; 96372; 96374; 96375; 96376; 99285; A9270; C9803; G0378; G0379; J0456; J0696; J1650; J2270; J2310; J2920; J2930; Q9967; U0003; U0005